=== PATIENT | male | born 1935 | race Caucasian/White ===

== ENCOUNTER 2018-05-15 09:33 | Outpatient (CLI) | payer MEDICARE, MEDICAID ==
[~2018-05-15 09:33] MED LIST: CEPH500C5 PO; ONDA4TAB12 PO; POTA20TA19 PO
[2018-05-15] MEDS ORDERED: iohexol 300mg/ml 100ml inj. ONE (09:59)
== END 2018-05-15 23:59 | disposition home or self-care (01) ==
LOC: 64 CT 09:33
PROVIDERS: ATTEND Family Medicine
DX: I71.2 Thoracic aortic aneurysm, without rupture (principal); I71.4 Abdominal aortic aneurysm, without rupture; I10 Essential (primary) hypertension; Z87.891 Personal history of nicotine dependence
CPT/HCPCS: 74177; J7030; Q9967